=== PATIENT | male | born 1970 | race Caucasian/White ===

== ENCOUNTER 2020-08-30 09:08 | Outpatient (REF) | payer OTHER, SELFPAY ==
[2020-08-30 11:13] LABS: MANUAL DIFF FLAG NO
[2020-08-30 11:26] LABS: Basophils Percent Auto 0.2 % (0-2); Eosinophils Absolute Auto 0.1 X10*3/uL (0.0-0.4); Eosinophils Percent Auto 0.8 % (0-4); Hematocrit 45.1 % (42-52); Hemoglobin 15.3 g/dl (14.0-18.0); Imm Gran Abs Auto 0.01 X10*3/uL (0.00-0.03); Imm Gran Pct Auto 0.2 % (0.0-0.4); Lymphocytes Absolute Auto 2.1 X10*3/uL (1.2-4.9); Lymphocytes Percent Auto 32.2 % (20-40); Mean Corpuscular HGB Conc 33.9 g/dl (31.0-36.0); Mean Corpuscular Volume 91.5 fL (80-98); Mean Platelet Volume 11.4 fL (9.4-12.4); Monocytes Absolute Auto 0.5 X10*3/uL (0.1-1.2); Monocytes Percent Auto 8.5 % (2-11); Neutrophils Absolute Auto 3.7 X10*3/uL (2.0-8.3); Neutrophils Percent Auto 58.1 % (45-73); Platelet Count 179 X10*3/uL (160-400); Red Blood Count 4.93 X10*6/uL (4.60-5.80); Red Cell Distribution Width 12.1 % (11.0-16.0); White Blood Count 6.4 X10*3/uL (4.8-10.8)
[2020-08-30 11:40] LABS: Alanine Aminotransferase 21 U/L (0-40); Albumin Level 4.6 g/dL (3.5-5.0); Alkaline Phosphatase 64 U/L (39-117); Anion Gap 13 (12-20); Aspartate Amino Transferase 20 U/L (5-37); Bilirubin Total 0.9 mg/dL (0.0-1.0); Blood Urea Nitrogen 20 mg/dL (9-16); Calcium 9.2 mg/dL (8.4-10.2); Carbon Dioxide 25 mmol/L (22-29); Chloride 106 mmol/L (96-108); Cholesterol 162 mg/dL; Estimated Glomerular Filt Rate > 60; Glucose Fasting 93 mg/dL (60-99); HDL Cholesterol 34 mg/dL; LDL Cholesterol Calculated 108 mg/dl; Potassium 4.5 mmol/l (3.3-5.1); Sodium 139 mmol/L (135-145); Total Protein 7.1 g/dL (6.5-8.0); Triglycerides 103 mg/dL
[2020-08-30 11:43] LABS: Glucose Urine UA NEG (NEG); Leukocyte Esterase Urine NEG (NEG); Nitrite Urine NEG (NEG); Specific Gravity - Urine 1.025 (1.005-1.025); Urine Blood 1+ (NEG); Urine Ketones NEG (NEG); Urine Protein NEG (NEG-TRACE)
[2020-08-30 11:47] LABS: Appearance Urine CLEAR; Color Urine YELLOW
[2020-08-30 12:06] LABS: WBC Urine 0-2 /HPF (0-4)
== END 2020-08-30 09:09 | disposition home or self-care (01) ==
LOC: HO.HMGCLDS 09:08
PROVIDERS: PCP Internal Medicine; Visit Provider Internal Medicine
DX: Z00.00 Encounter for general adult medical examination without abnormal findings (principal); E78.6 Lipoprotein deficiency; R73.09 Other abnormal glucose
CPT/HCPCS: 36415; 80053; 80061; 81001; 84153; 85025

== ENCOUNTER 2020-09-02 10:07 | Outpatient (REF) | payer OTHER, SELFPAY ==
[2020-09-02 11:24] LABS: Glucose Urine UA NEG (NEG); Leukocyte Esterase Urine NEG (NEG); Nitrite Urine NEG (NEG); Specific Gravity - Urine 1.025 (1.005-1.025); Urine Blood TRACE (NEG); Urine Ketones NEG (NEG); Urine Protein NEG (NEG-TRACE)
[2020-09-02 11:25] LABS: Appearance Urine CLEAR; Color Urine YELLOW
[2020-09-02 11:44] LABS: RBC Urine 0-2 /HPF (0); WBC Urine 0 /HPF (0-4)
== END 2020-09-02 10:08 | disposition home or self-care (01) ==
LOC: HO.HMGCLDS 10:07
PROVIDERS: PCP Internal Medicine; Visit Provider Internal Medicine
DX: R31.9 Hematuria, unspecified (principal)
CPT/HCPCS: 81001

== ENCOUNTER 2022-01-09 10:45 | Outpatient (REF) | payer OTHER, SELFPAY ==
[2022-01-09 10:49] LABS: MANUAL DIFF FLAG NO
[2022-01-09 11:08] LABS: Basophils Percent Auto 0.2 % (0-2); Eosinophils Absolute Auto 0.1 X10*3/uL (0.0-0.4); Eosinophils Percent Auto 1.2 % (0-4); Hematocrit 43.1 % (42.0-52.0); Hemoglobin 14.1 g/dl (14.0-18.0); Imm Gran Abs Auto 0.01 X10*3/uL (0.00-0.03); Imm Gran Pct Auto 0.2 % (0.0-0.4); Lymphocytes Absolute Auto 1.9 X10*3/uL (1.2-4.9); Mean Corpuscular HGB Conc 32.7 g/dl (31.0-36.0); Mean Corpuscular Hemoglobin 30.1 pg (27.0-33.0); Mean Corpuscular Volume 92.1 fL (80.0-98.0); Mean Platelet Volume 11.4 fL (9.4-12.4); Monocytes Absolute Auto 0.6 X10*3/uL (0.1-1.2); Monocytes Percent Auto 9.7 % (2-11); Neutrophils Absolute Auto 3.3 x10*3/uL (2.0-8.3); Neutrophils Percent Auto 56.7 % (45-73); Platelet Count 171 X10*3/uL (160-400); Red Blood Count 4.68 X10*6/uL (4.60-5.80); Red Cell Distribution Width 12.9 % (11.0-16.0); White Blood Count 5.8 X10*3/uL (4.8-10.8)
[2022-01-09 11:13] LABS: Appearance Urine CLEAR; Color Urine YELLOW; Glucose Urine UA NEG (NEG); Leukocyte Esterase Urine NEG (NEG); Nitrite Urine NEG (NEG); Specific Gravity - Urine >= 1.030 (1.005-1.025); Urine Blood TRACE (NEG); Urine Ketones NEG (NEG); Urine Protein NEG (NEG-TRACE)
[2022-01-09 11:28] LABS: Alanine Aminotransferase 24 U/L (0-40); Albumin Level 4.4 g/dL (3.5-5.0); Alkaline Phosphatase 62 U/L (39-117); Anion Gap 10 (12-20); Aspartate Amino Transferase 20 U/L (5-37); Bilirubin Total 0.8 mg/dL (0.0-1.0); Blood Urea Nitrogen 18 mg/dL (9-16); Calcium 9.1 mg/dL (8.4-10.2); Carbon Dioxide 24 mmol/L (22-29); Chloride 109 mmol/L (96-108); Cholesterol 135 mg/dL; Estimated Glomerular Filt Rate > 60; Glucose Fasting 97 mg/dL (60-99); HDL Cholesterol 27 mg/dL; LDL Cholesterol Calculated 88 mg/dl; Potassium 4.1 mmol/L (3.3-5.1); Sodium 139 mmol/L (135-145); Total Protein 6.6 g/dL (6.5-8.0); Triglycerides 104 mg/dL
[2022-01-09 11:49] LABS: PSA,Total (Free>4and<10) 0.57 ng/mL (0.00-4.00)
[2022-01-09 12:06] LABS: Squamous Epithelial Cell Urine TRACE /LPF
[2022-01-09 12:07] LABS: Mucus Urine TRACE /LPF; WBC Urine 0-2 /HPF (0-4)
[2022-01-09 12:08] LABS: Bacteria Urine TRACE /LPF; RBC Urine 0 /HPF (0)
== END 2022-01-09 10:46 | disposition home or self-care (01) ==
LOC: HO.LNP 10:45
PROVIDERS: PCP Internal Medicine; Visit Provider Internal Medicine
DX: Z00.00 Encounter for general adult medical examination without abnormal findings (principal); Z12.5 Encounter for screening for malignant neoplasm of prostate; R31.9 Hematuria, unspecified; E78.6 Lipoprotein deficiency; R73.03 Prediabetes
CPT/HCPCS: 80053; 80061; 81001; 81003; 84153; 85025

== ENCOUNTER 2023-01-12 11:09 | Outpatient (REF) | payer OTHER, SELFPAY ==
[2023-01-12 11:12] LABS: MANUAL DIFF FLAG NO
[2023-01-12 11:31] LABS: Eosinophils Absolute Auto 0.1 X10*3/uL (0.0-0.4); Eosinophils Percent Auto 1.2 % (0-4); Hematocrit 49.5 % (42.0-52.0); Hemoglobin 16.3 g/dl (14.0-18.0); Imm Gran Abs Auto 0.02 X10*3/uL (0.00-0.03); Imm Gran Pct Auto 0.3 % (0.0-0.4); Lymphocytes Percent Auto 28.5 % (20-40); Mean Corpuscular HGB Conc 32.9 g/dl (31.0-36.0); Mean Corpuscular Volume 91.2 fL (80.0-98.0); Mean Platelet Volume 11.6 fL (9.4-12.4); Monocytes Absolute Auto 0.6 X10*3/uL (0.1-1.2); Monocytes Percent Auto 8.3 % (2-11); Neutrophils Absolute Auto 4.3 x10*3/uL (2.0-8.3); Neutrophils Percent Auto 61.7 % (45-73); Platelet Count 197 X10*3/uL (160-400); Red Blood Count 5.43 X10*6/uL (4.60-5.80); Red Cell Distribution Width 12.6 % (11.0-16.0)
[2023-01-12 11:34] LABS: Appearance Urine Clear; Color Urine Yellow; Glucose Urine UA Negative (Negative); Leukocyte Esterase Urine Negative (Negative); Nitrite Urine Negative (Negative); PH 5.5 (5.0-9.0); Urine Blood Negative (Negative); Urine Ketones Negative (Negative); Urine Protein Negative (Neg-Trace)
[2023-01-12 11:39] LABS: Bacteria Urine None Seen (None Seen); Hyaline Casts Urine 0-2 /LPF (0-2); RBC Urine 0-2 /HPF (0-2); Squamous Epithelial Cell Urine 0-2 /HPF (0-2); WBC Urine 0-5 /HPF (0-5)
[2023-01-12 11:49] LABS: Estimated Average Glucose 111 mg/dL; Hemoglobin A1c % 5.5 %
[2023-01-12 11:53] LABS: Alanine Aminotransferase 31 U/L (0-40); Albumin Level 4.7 g/dL (3.5-5.0); Alkaline Phosphatase 69 U/L (39-117); Anion Gap 17 (12-20); Aspartate Amino Transferase 25 U/L (5-37); Blood Urea Nitrogen 14 mg/dL (9-16); Calcium 9.8 mg/dL (8.4-10.2); Carbon Dioxide 24 mmol/L (22-29); Chloride 106 mmol/L (96-108); Cholesterol 181 mg/dL; Estimated Glomerular Filt Rate > 60; Glucose Fasting 105 mg/dL (60-99); HDL Cholesterol 34 mg/dL; LDL Cholesterol Calculated 127 mg/dl; Potassium 4.5 mmol/L (3.3-5.1); Sodium 142 mmol/L (135-145); Total Protein 7.1 g/dL (6.5-8.0); Triglycerides 102 mg/dL
[2023-01-12 12:03] LABS: PSA,Total (Free>4and<10) 1.16 ng/mL (0.00-4.00)
[2023-01-12 12:33] LABS: Creatinine Urine 164.71 mg/dL; Microalbum/Creatinine Ratio Ur 7.2 ug/mg cr
== END 2023-01-12 11:10 | disposition home or self-care (01) ==
LOC: HO.LNP 11:09
PROVIDERS: PCP Internal Medicine; Visit Provider Internal Medicine
DX: Z00.00 Encounter for general adult medical examination without abnormal findings (principal); Z12.5 Encounter for screening for malignant neoplasm of prostate; R73.03 Prediabetes
CPT/HCPCS: 80053; 80061; 81001; 82043; 83036; 84153; 85025

== ENCOUNTER 2023-06-08 08:43 | Day surgery (SDC) | payer OTHER, SELFPAY ==
[2023-06-08 06:07] VITALS: BMI 29.9
[2023-06-08] MEDS: Lactated Ringers 1,000 ML 50 ML IVCONT (09:25)
[2023-06-08 09:34] VITALS: BP 140/84; PULSE 75; RESP 18; TEMP 36.7; O2SAT 98
--- NOTE | 2023-06-08 10:02 | HO.ANESPROP2 ---
HPI - Anesthesia Eval Consult details Narrative: 52 yo male patient for Colonoscopy PMFSH Active Problems Active Problems: No pertinent medical history Family History Family history of problems with anesthesia: No Surgical History Surgical History Hx of tonsillectomy H/O colonoscopy History of Problems with Anesthesia: No Social History Social History Patient Tobacco Use Status: Never used Tobacco Are you DNR?: No Advance Directives: No Advance Directives Information Provided: Yes Nutrition Risks: No Nutritional Risk Meds Allergies Allergy/AdvReac Type Severity Reaction Status Date / Time No Known Allergies Allergy Verified 06/08/23 09:21 Active Medications: Current Medications Lactated Ringer's (Lr) 1,000 mls @ 50 mls/hr IVCONT .Q20H BONNY Last Admin: 06/08/23 09:25 Dose: 50 mls/hr Home Medications Medication Instructions Recorded Confirmed Last Taken Type No Known Home Meds 06/07/23 06/07/23 Unknown History Exam Exam Date and Time: June 08, 2023 1002 Height,Weight and Vital Signs: Height 6 ft 2 in Weight 105.506 kg Last Vital Signs Temp 98.1 F 06/08/23 09:34 Pulse 75 06/08/23 09:34 Resp 18 06/08/23 09:34 BP 140/84 H 06/08/23 09:34 Pulse Ox 98 06/08/23 09:34 O2 Del Method Room Air 06/08/23 09:34 Airway Mallampati Class: II TM Dist: >3cm Neck ROM: Full Loose/Missing/Broken Teeth: No (Denies broken, loose, missing teeth) Heart: RRR Lungs: CTAB Assessment and Plan Assessment Anesthesia Assessment: Anesthesia Plan Discussed and Chart Reviewed Final Anesthetic Review Family History of Problems with Anesthesia: No History of Problems with Anesthesia: No NPO: Yes ASA Class: I Final Preanesthetic Review: No Changes in Pt Med Stat, Meds/Allgs Chart Reviewed, Consent Obtained/Reviewed and Anes Risks/Benef Reviewed Patient Risk: Low Procedure Risk: Low Assessment/Block/Sedation in SS: Assess/Block/Sedation-SS Anesthetic Plan Anesthetic Plan: MAC: Disposition: Standard PACU
--- NOTE | 2023-06-08 10:14 | MHC.SHP ---
Pre-Procedural Eval Section A Date of Service: 06/08/23 Section B Chief Complaint: screening Details of Present Illness: see H&P no changes Relevant Family History (Specify if Yes): No Relevant Social History: None Present Medications: see Short Stay Collaborative assessment Medical History: No relevant PMH History of Previous Operations: No relevant previous surgery Allergies: Allergies Allergy/AdvReac Type Severity Reaction Status Date / Time No Known Allergies Allergy Verified 06/08/23 09:21 Review of Systems Sugical H&P ROS: Negative: Constitution, Cardiovascular, Respiratory, Neurological, Psychiatric, Hem-Onc, Allergic/Immunologic, Gastrointestinal, Genitourinary, Musculoskeletal, Integumentary, Endocrine and Eyes/Ears/Nose/Throat Exam Surgical H&P Exam: Normal: HEENT, Normal: Heart, Normal: Lungs, Normal: Extremities, Normal: Abdomen, Normal: Skin and Normal: Neurological Plan Diagnosis/Plan: Unchanged I have reviewed the history and physical and performed a pertinent physical examination on my patient. No changes have occurred unless specified. Time Spent With Patient Time: Total time managing care of this patient today ____ minutes.
[2023-06-08 10:54] VITALS: BP 105/67; PULSE 73; TEMP 36.6; O2SAT 98
--- NOTE | 2023-06-08 10:57 | PM.OP ---
Brief Operative Note Date of Service: 06/08/23 Pre-op diagnosis: see H&P no changes Post-op diagnosis: same Procedure: colonoscopy Surgeon: Roman Chaudhari Anesthesia: MAC Was an [employer] Quality Control Technician used for this Procedure?: No Estimated blood loss (mL): 2 Pathology: other Condition: stable Disposition: PACU
[2023-06-08 11:09] VITALS: BP 139/83; PULSE 76; RESP 20; TEMP 36.6; O2SAT 97
--- NOTE | 2023-06-08 12:09 | OP_ITS ---
DATE OF SERVICE: 06/08/2023 SURGEON: Roman Chaudhari MD INDICATIONS: Colon cancer screening. PREOPERATIVE DIAGNOSIS: POSTOPERATIVE DIAGNOSIS: PROCEDURE PERFORMED: Colonoscopy to the terminal ileum with biopsy. ESTIMATED BLOOD LOSS: COMPLICATIONS: ANESTHESIA: Monitored anesthesia care. ASSISTANTS: SPECIMENS: DESCRIPTION OF PROCEDURE: A history and physical was performed. The risks and benefits of the procedure were explained to the patient. Informed consent was obtained. The patient was placed in the left lateral decubitus position. A digital rectal exam was performed and was found to be normal. The Olympus pediatric video colonoscope was introduced into the rectum and advanced to the cecum. The cecum was identified by transillumination, palpation, and identification of ileocecal valve. Examination was performed. The scope was removed. He tolerated the procedure well and was returned to the recovery area in stable condition. FINDINGS: The terminal ileum was normal. The visualized colonic mucosa was normal. The quality of the prep was good. Two polyps were identified, both measured less than 5 mm, and were removed with a biopsy forceps. These were located at 90 cm and at 20 cm. Retroflexed examination was normal. There were some small internal hemorrhoids. IMPRESSION: Colon polyps. RECOMMENDATION: Follow up the biopsy results. MD JERRY Lutz/CHARLIEL / [id number]
== END 2023-06-08 13:08 | disposition home or self-care (01) ==
PROVIDERS: PCP Internal Medicine; Visit Provider Internal Medicine Gastroenterology
PROC: 0DJD8ZZ Inspection of Lower Intestinal Tract, Via Natural or Artificial Opening Endoscopic (ICD-10-PCS; CPT 45378; principal; 2023-06-08 10:20)
DX: Z12.11 Encounter for screening for malignant neoplasm of colon (principal); D12.5 Benign neoplasm of sigmoid colon; K63.5 Polyp of colon; K64.8 Other hemorrhoids
CPT/HCPCS: 45380; 88305

== ENCOUNTER 2024-01-15 11:17 | Outpatient (REF) | payer OTHER, SELFPAY ==
[2024-01-15 11:23] LABS: MANUAL DIFF FLAG NO
[2024-01-15 11:35] LABS: Appearance Urine Clear; Color Urine Yellow; Glucose Urine UA Negative (Negative); Leukocyte Esterase Urine Negative (Negative); Nitrite Urine Negative (Negative); PH 5.5 (5.0-9.0); Specific Gravity - Urine >= 1.030 (1.005-1.025); Urine Blood Negative (Negative); Urine Ketones Negative (Negative); Urine Protein Negative (Neg-Trace)
[2024-01-15 11:40] LABS: Bacteria Urine None Seen (None Seen); Hyaline Casts Urine 0-2 /LPF (0-2); RBC Urine 0-2 /HPF (0-2); Squamous Epithelial Cell Urine 0-2 /HPF (0-2); WBC Urine 0-5 /HPF (0-5)
[2024-01-15 11:57] LABS: Basophils Percent Auto 0.1 % (0-2); Eosinophils Absolute Auto 0.1 X10*3/uL (0.0-0.4); Hematocrit 45.3 % (42.0-52.0); Hemoglobin 15.1 g/dl (14.0-18.0); Imm Gran Abs Auto 0.01 X10*3/uL (0.00-0.03); Imm Gran Pct Auto 0.1 % (0.0-0.4); Lymphocytes Absolute Auto 2.2 X10*3/uL (1.2-4.9); Lymphocytes Percent Auto 30.9 % (20-40); Mean Corpuscular HGB Conc 33.3 g/dl (31.0-36.0); Mean Platelet Volume 11.4 fL (9.4-12.4); Monocytes Absolute Auto 0.6 X10*3/uL (0.1-1.2); Monocytes Percent Auto 8.8 % (2-11); Neutrophils Absolute Auto 4.2 x10*3/uL (2.0-8.3); Neutrophils Percent Auto 59.1 % (45-73); Platelet Count 192 X10*3/uL (160-400); Red Blood Count 4.87 X10*6/uL (4.60-5.80); Red Cell Distribution Width 12.7 % (11.0-16.0); White Blood Count 7.1 X10*3/uL (4.8-10.8)
[2024-01-15 12:04] LABS: Alanine Aminotransferase 36 U/L (0-40); Albumin Level 4.5 g/dL (3.5-5.0); Alkaline Phosphatase 63 U/L (39-117); Anion Gap 14 (12-20); Aspartate Amino Transferase 26 U/L (5-37); Bilirubin Total 0.6 mg/dL (0.0-1.0); Blood Urea Nitrogen 19 mg/dL (9-16); Calcium 9.7 mg/dL (8.4-10.2); Carbon Dioxide 23 mmol/L (22-29); Chloride 107 mmol/L (96-108); Cholesterol 159 mg/dL (<200); Estimated Glomerular Filt Rate > 60; Glucose Fasting 98 mg/dL (60-99); HDL Cholesterol 32 mg/dL (>40); LDL Cholesterol Calculated 100 mg/dL (<100); Sodium 140 mmol/L (135-145); Total Protein 7.4 g/dL (6.5-8.0); Triglycerides 135 mg/dL (<150)
[2024-01-15 12:09] LABS: Estimated Average Glucose 111 mg/dL; Hemoglobin A1c % 5.5 % (<6.0)
[2024-01-15 12:21] LABS: PSA,Total (Free>4and<10) 0.74 ng/mL (0.00-4.00)
[2024-01-15 12:29] LABS: Creatinine Urine 198.82 mg/dL
== END 2024-01-15 11:18 | disposition home or self-care (01) ==
LOC: HO.LNP 11:17
PROVIDERS: Visit Provider Internal Medicine
DX: Z00.00 Encounter for general adult medical examination without abnormal findings (principal); Z12.5 Encounter for screening for malignant neoplasm of prostate; E78.6 Lipoprotein deficiency; R73.03 Prediabetes
CPT/HCPCS: 80053; 80061; 81001; 82043; 82570; 83036; 84153; 85025

== ENCOUNTER 2025-01-19 12:22 | Outpatient (REF) | payer OTHER, SELFPAY ==
[2025-01-19 12:25] LABS: MANUAL DIFF FLAG NO
[2025-01-19 12:40] LABS: Appearance Urine Clear; Basophils Percent Auto 0.2 % (0-2); Color Urine Yellow; Eosinophils Absolute Auto 0.1 X10*3/uL (0.0-0.4); Eosinophils Percent Auto 1.4 % (0-4); Glucose Urine UA Negative (Negative); Hematocrit 45.9 % (42.0-52.0); Hemoglobin 15.1 g/dl (14.0-18.0); Imm Gran Abs Auto 0.01 X10*3/uL (0.00-0.03); Imm Gran Pct Auto 0.2 % (0.0-0.4); Leukocyte Esterase Urine Negative (Negative); Lymphocytes Absolute Auto 2.2 X10*3/uL (1.2-4.9); Lymphocytes Percent Auto 34.3 % (20-40); Mean Corpuscular HGB Conc 32.9 g/dl (31.0-36.0); Mean Corpuscular Hemoglobin 30.6 pg (27.0-33.0); Mean Corpuscular Volume 92.9 fL (80.0-98.0); Mean Platelet Volume 11.5 fL (9.4-12.4); Monocytes Absolute Auto 0.5 X10*3/uL (0.1-1.2); Monocytes Percent Auto 8.3 % (2-11); Neutrophils Absolute Auto 3.6 x10*3/uL (2.0-8.3); Neutrophils Percent Auto 55.6 % (45-73); Nitrite Urine Negative (Negative); PH 7.5 (5.0-9.0); Platelet Count 180 X10*3/uL (160-400); Red Blood Count 4.94 X10*6/uL (4.60-5.80); Red Cell Distribution Width 12.7 % (11.0-16.0); Urine Blood Negative (Negative); Urine Ketones Negative (Negative); Urine Protein Negative (Neg-Trace); White Blood Count 6.4 X10*3/uL (4.8-10.8)
[2025-01-19 12:43] LABS: Bacteria Urine None Seen (None Seen); Hyaline Casts Urine 0-2 /LPF (0-2); RBC Urine 0-2 /HPF (0-2); Squamous Epithelial Cell Urine 0-2 /HPF (0-2); WBC Urine 0-5 /HPF (0-5)
--- OUTSIDE RECORDS SUMMARY | 2025-01-19 12:49 | XMS_ITS ---
Author Organization Jitendra Aguilar MD Address [address] [place] [phone] Care Team Providers Care Cake Wringer Name Role Phone Jitendra Aguilar Primary Care Provider Allergies No Known Allergies REASON FOR VISIT ANNUAL EXAM, No Covid symptoms Social History Tobacco Use: Social History Observation Description Date Details (start date - stop date) Never Smoker NA - NA Tobacco Use/Smoking Question Answer Notes Patient is a nonsmoker Additional Findings: Tobacco Non-User Cu rrent non-smoker, currently using no form of tobacco Alcohol Screen Question Answer Notes Did you have a drink containing alcohol in the p ast year? No Points 0 Interpretation Negative Vital Signs Blood pressure systolic 112 mm Hg 01/22/20 24 Blood pressure diastolic 66 mm Hg 024 Height 75 in 01/22/2024 Weight 245 lbs 01/22/2024 BMI 30.62 kg/m2 01/22/2024 weight is up 10 pounds since 01-19-23 Encounters Encounter Location Date Provider Diagnosis Jitendra Aguilar MD [address] [place] [phone] 01/22/2024 Jitendra Aguilar Hemorrhoids, external K64.4 ; Annual physical exam Z00.00 ; Low HDL (under 40) E78.6 ; Prediabetes R73.09 and Depression screening Z13.31 Assessments Encounter Date Diagnosis (ICD Code) Assessment Notes Treatment Notes Treatment Clinical Notes Section Notes 01/22/2024 Hemorrhoids, external (ICD-10 - K64.4) 01/22/2024 Annual physical exam (ICD-10 - Z00.00) labs reviewewd and discussed enzo patient 01/22/2024 Low HDL (under 40) (ICD-10 - E78.6) doing a little better 01/22/2024 Prediabetes (ICD-10 - R73.09) stable, no need for medication at this time 01/22/2024 Depression screening (ICD-10 - Z13.31) negative screen Plan Of Treatment Treatment Notes Assessment Notes Annual physical exam labs reviewewd and discussed enzo patient Low HDL (under 40) doing a little barrett r Prediabetes stable, no need for medication at this time Depression screening negative screen Next Appt Details Follow Up: 1 Year, Reason: Provider Name:Jitendra cox, 01/26/2025 02:30:00 PM, [address] [place] [address], [address], [phone], Progress Notes * ACOSTAWood GOYALDOB:1970 (53 yo M)Acc No.[id number]:01/22/2024 Progress Notes Patient:?Wood Lyons Provider:?Jitendra Aguilar MD :1970???Age:53 Y???Sex:Male Felipe e:01/22/2024 Address:[address] [place], [place] [phone] Subjective: * Chief Complaints: * ???ANNUAL EXAMNo Covid sympt oms * HPI: ???Depression Screening:?PHQ-9?Little interest or pleasure in doing things?Not at all,?Feeling down, depressed, or hopeless?Not at all,?Trouble falling or staying asleep, or sleeping too much?Not at all,?Feeling tired or having little energy?Not at all,?Poor appetite or overeating?Not at all,?Feeling bad about yourself or that you are a failure, or have let yourself or your family down?Not at all,?Trouble concentrating on things, such as reading the newspaper or watching television?Not at all,?Moving or speaking so slowly that other people could have noticed; or the opposite, being so fidgety or restless that you have been moving around a lot more than usual?Not at all,?Thoughts that you would be better off or of hurting yourself in some way?Not at all,?Total Score?0.?Interpretation and Intervention?Depression Screening Findings?Negative,?Follow-Up for Depression?: review of PHQ-9 found negative result, no follow-up needed.?Communication Needs:?Communication Needs?Does the patient have a hearing impairment?No,?Does the patient have a vision impairment??Yes,?If yes, what is the vision impairment??Glasses,?Does the patient have a cognition impairment??No.?SDOH Questions:?SDOH Questions?In the past year have you been worried about losing housing??No,?In the past year have you or any family members you live with been unable to get any of the following when it was really needed? Check all that apply:?None.?Symptom(s):? patient is a 53 yo male here for annual visit with review of recent labs and follow up of chronic issues. * ROS:?General/Constitutional:?Patient denies?fatigue, headache.?Change in appetite?denies.?Chills?denies.?Fever?denies.?Ophthalmologic:?Blurred vision?denies.?Discharge?denies.?Pain?denies.?ENT:?Patient denies?decreased sense of smell, any loss of taste, sore throat.?Decreased hearing?denies.?Sore throat?denies.?Swollen glands?denies.?Endocrine:?Cold intolerance?denies.?Excessive thirst?denies.?Heat intolerance?denies.?Weight loss?denies.?Respiratory:?Cough?denies.?Shortness of breath at rest?denies.?Shortness of breath with exertion?denies.?Wheezing?denies.?Cardiovascular:?Chest pain at rest?denies.?Chest pain with exertion?denies.?Irregular heartbeat?denies.?Shortness of breath?denies.?Gastrointestinal:?Abdominal pain?denies.?Change in bowel habits?denies.?Diarrhea?denies.?Nausea?denies.?Rectal bleeding?denies.?Vomiting?denies .?Genitourinary:?Blood in urine?denies.?Difficulty urinating?denies.?Frequent urination?denies.?Musculoskeletal:?Patient denies?muscle aches.?Painful joints?denies.?Weakness?denies.?Peripheral Vascular:?Patient denies?red and blue toes.?Skin:?Dry skin?denies.?Itching?denies.?Denies?Mole(s),? changes in moles, new moles or any lesions of concern.?Denies?Photosensitivity.?Rash?denies.?Neurologic:?Dizziness?denies.?Fainting?denies.?Headache?denies.? * Medical History:? * Surgical History:? * Hospitalization/Major Diagno stic Procedure:? * Family History:?Father: dece ased 78 yrs.?Mother: 44 yrs, diagnosed with Cancer.?1 brother(s) . .? Mother-Cancer father Bladder cancer alcohol abuse father no mental illness in the family, Denies mental health/substance abuse family history. * Social History:?Tobacco Use:?Tobacco Use/Smoking?Patient is a?nonsmoker,?Additional Findings: Tobacco Non-User?Current non-smoker, currently using no form of tobacco.?Drugs/Alcohol:?Alcohol Screen?Did you have a drink containing alcohol in the past year??No,?Points?0,?Interpretation?Negative.?Miscellaneous:?no Caffeine. no Children. no Community involvements. Exercise: yes, walks in the good weather 1 hour. Home smoke detector use: yes. Housing: owning. Living with: spouse. Marital status: . Occupation: weeks/months/years, works full-time. Pets: cats: dogs:2 cats. no Travel outside of the [place]. * Medications:?None * Allergies:?N.K.D.A.yes[Aller gies Verified] Objective: * Vitals:?Ht: 75, Wt:245, BMI: 30.62, BP:112/66 weight is up 10 pounds since 01-19-23. * ???Past Orders: ???Lab:PSA,Total (Free>4and< 10) (Order Date - 01/15/2024) (Collection Date - 01/15/2024) ? Value Reference Range ?PSA,Total (Free>4and<10) 0.74 0.00-4.00 - ng/mL ???Lab:Microalbumin, Random (Order Date - 01/15/2024) (Collection Date - 01/15/2024) ? Value Reference Range ?Creatinine Urine 198.82 - m g/dL ?Microalbumin Urine 8.0 - mg/L ?Microalbum Creatinine Ratio Ur 4.0 <30 - ug/mg cr ???Lab:Hemoglobin A1c (Order Date - 01/15/2024) (Collection Date - 01/15/2024) ? Value Reference Range ?Hemoglobin A1c % 5.5 <6. 0 - % ?Estimated Average Glucose 111 - mg/dL ???Lab:Complete Blood Count Auto Diff (Order Date - 01/15/2024) (Collection Date - 01/15/2024) ? Value Reference Range ?White Blood Count 7.1 4. 8-10.8 - X10*3/uL ?Red Blood Count 4.87 4.60 -5.80 - X10*6/uL ?Hemoglobin 15.1 14.0-18.0 - g/dl ?Hematocrit 45.3 42.0-52.0 - % ?Mean Corpuscular Volume 93.0 80.0-98.0 - fL ?Mean Corpuscular Hemoglobin 31.0 27.0-33.0 - pg ?Mean Corpuscular HGB Conc 33.3 31.0-36.0 - g/dl ?Red Cell Distribution Width 12.7 11.0-16.0 - % ?Platelet Count 192 160-4 00 - X10*3/uL ?Mean Platelet Volume 11.4 9.4-12.4 - fL ?Neutrophils Percent Auto 59.1 45-73 - % ?Imm Gran Pct Auto 0.1 0. 0-0.4 - % ?Lymphocytes Percent Auto 30.9 20-40 - % ?Monocytes Percent Auto 8.8 2-11 - % ?Eosinophils Percent Auto 1.0 0-4 - % ?Basophils Percent Auto 0.1 0-2 - % ?NRBC Pct Auto 0.0 0.0-0. 2 - /100WBC ?Neutrophils Absolute Auto 4.2 2.0-8.3 - x10*3/uL ?Imm Gran Abs Auto 0.01 0. 00-0.03 - X10*3/uL ?Lymphocytes Absolute Auto 2.2 1.2-4.9 - X10*3/uL ?Monocytes Absolute Auto 0.6 0.1-1.2 - X10*3/uL ?Eosinophils Absolute Auto 0.1 0.0-0.4 - X10*3/uL ?Basophils Absolute Auto 0.0 0.0-0.2 - X10*3/uL ?NRBC Abs Auto 0.000 0.0-0. 012 - X10*3/uL ???Lab:UA ClnCatch+Micro w/r flx Cult (Order Date - 01/15/2024) (Collection Date - 01/15/2024) ? Value Reference Range ?Color Urine Yellow - ?Appearance Urine Clear - ?PH 5.5 5.0-9.0 - ?Glucose Urine UA Negative Neg ative - mg/dL ?Urine Blood Negative Negative - ?Specific [place] - Urine >= 1.030 H 1.005-1.025 - ?Urine Protein Negative Neg-Tr jarett - mg/dL ?Urine Ketones Negative Negati ve - mg/dL ?Nitrite Urine Negative Negati ve - ?Leukocyte Esterase Urine Negative Negative - ?RBC Urine 0-2 0-2 - /HPF ?WBC Urine 0-5 0-5 - /HPF ?Squamous Epithelial Cell Urine 0-2 0-2 - /HPF ?Bacteria Urine None Seen None Seen - ?Hyaline Casts Urine 0-2 0-2 - /LPF ???Lab:Comprehensive [place]. P ying Fast (Order Date - 01/15/2024) (Collection Date - 01/15/2024) ? Value Reference Range ?Sodium 140 135-145 - mmo l/L ?Bilirubin Total 0.6 0.0- 1.0 - mg/dL ?Aspartate Amino Transferase 26 5-37 - U/L ?Alanine Aminotransferase 36 0-40 - U/L ?Total Protein 7.4 6.5-8. 0 - g/dL ?Albumin Level 4.5 3.5-5. 0 - g/dL ?Alkaline Phosphatase 63 39-117 - U/L ?Potassium 4.0 3.3-5.1 - mmol/L ?Chloride 107 96-108 - mm ol/L ?Carbon Dioxide 23 22-29 - mmol/L ?Anion Gap 14 12-20 - ?Blood Urea Nitrogen 19 H 9-16 - mg/dL ?Creatinine 0.79 0.5-1.4 - mg/dL ?Estimated Glomerular Filt Rate > 60 - ?Glucose Fasting 98 60-9 9 - mg/dL ?Calcium 9.7 8.4-10.2 - m g/dL ???Lab:Lipid Panel (Order Da te - 01/15/2024) (Collection Date - 01/15/2024) ? Value Reference Range ?Triglycerides 135 <150 - mg/dL ?Cholesterol 159 <200 - m g/dL ?LDL Cholesterol Calculated 100 H <100 - mg/dL ?HDL Cholesterol 32 L >40 - mg/dL * Examination: ???General Examination: ?GENERAL APPEARANCE:?well developed, well nourished, in no acute distress.?HEAD:?normocephalic, atraumatic.?EYES:?pupils equal, round, reactive to light and accommodation, sclera non-icteric.?EARS:?normal.?ORAL CAVITY:?mucosa moist.?THROAT:?clear.?NECK/THYROID:?neck supple, full range of motion, no cervical lymphadenopathy, no bruits.?SKIN:?warm and dry, no suspicious lesions.?HEART:?regular rate and rhythm, S1, S2 normal, no murmurs.?LUNGS:?clear to auscultation bilaterally.?ABDOMEN:?soft, nontender, nondistended, bowel sounds present, normal, no organomegaly , no masses palpable.?RECTAL EXAM:?normal tone,?has external hemorrhoids, no masses palpable, prostate normal, no stool. had colonoscopy.?MALE GENITOURINARY:?circumcised, no penile lesions or discharge, no testicular mass, testes descended bilaterally.?EXTREMITIES:?no clubbing, cyanosis, or edema.?NEUROLOGIC:?nonfocal, motor strength normal upper and lower extremities, sensory exam intact.? Assessment: * Assessment: 1.?Annual physical exam - Z0 0.00 (Primary)?2.?Hemorrhoids, external - K64.4?3.?Low HDL (under 40) - E78.6?4.?Prediabetes - R73.09?5.?Depression screening - Z13.31? Plan: * Treatment: 2.?Low HDL (under 40)? Notes: doing a little better.?? 3.?Prediabetes? Notes: stable, no need for medication at this time.?? 4.?Depression screening? Notes: negative screen.?? * Procedure Codes:? * Follow Up:?1 Year * * Sign off status: Completed true * Provider:?Jitendra Aguilar MD Date:?0 01/22/2024 Generated for Michael peralta/Darlene/Mariitting on:?01/19/2025 12:49 PM EDT History and Physical Notes * HPI (History of Present Illness) Category Sub-Category Detail Notes Category Not es Symptom(s) patient is a 53 yo male here for annual visit with review of recent labs and follow up of chronic issues. Depression Screening PHQ-9 Little inte rest or pleasure in doing things: Not at all Feeling down, depressed, or hopeless: No t at all Trouble falling or staying asleep, or sl eeping too much: Not at all Feeling tired or having little energy: N ot at all Poor appetite or overeating: Not at all Feeling bad about yourself o r that you are a failure, or have let yourself or your family down: Not at all Trouble concentrating on thi ngs, such as reading the newspaper or watching television: Not at all Moving or speaking so slowly that other people could have noticed; or the opposite, being so fidgety or restless that you have been moving around a lot more than usual: Not at all Thoughts that you would be b gonzalo off or of hurting yourself in some way: Not at all Total Score: 0 Interpretation and Intervention Depression Clif khalil Findings: Negative Follow-Up for Depression: : review of PH Q-9 found negative result, no follow-up needed SDOH Questions SDOH Questions In the past year have you been worried about losing housing?: No In the past year have you or any family members you live with been unable to get any of the following when it was really needed? Check all that apply:: None Communication Needs Communication Needs Does the patient have a hearing impairment: No Does the patient have a vision impairmen t?: Yes ?If yes, what is the vision impairment?: Glasses Does the patient have a cognition impair ment?: No Examination Category Sub-Category Detail Notes Category Not es General Examination GENERAL APPEARANCE: well dev eloped, well nourished, in no acute distress HEAD: normocephalic, atrau matic EYES: pupils equal, round, reactive to light and accommodation, sclera non- icteric EARS: normal THROAT: clear NECK/THYROID: neck supple, full ra nge of motion, no cervical lymphadenopathy, no bruits HEART: regular rate and rhy thm, S1, S2 normal, no murmurs LUNGS: clear to auscultatio n bilaterally ABDOMEN: soft, nontender, non distended, bowel sounds present, normal, no organomegaly , no masses palpable NEUROLOGIC: nonfocal, motor stre ngth normal upper and lower extremities, sensory exam intact SKIN: warm and dry, no britni picious lesions EXTREMITIES: no clubbing, cyanosi s, or edema MALE GENITOURINARY: circumcised, no peni le lesions or discharge, no testicular mass, testes descended bilaterally RECTAL EXAM: normal tone, has ext ernal hemorrhoids, no masses palpable, prostate normal, no stool. had colonoscopy ORAL CAVITY: mucosa moist
--- OUTSIDE RECORDS SUMMARY | 2025-01-19 12:49 | XMS_ITS ---
Author Organization Jitendra Aguilar MD Address [address] [place] [phone] Care Team Providers Care Microphone Operator Name Role Phone Jitendra Aguilar Primary Care Provider Results Component Value Reference Range Notes Complete Blood Count Auto Di ff (Not yet reviewed by provider) Interpretation: Performing Lab:[facility], [address] [place] [phone] Notes/Report: White Blood Count 6.4 4.8-10.8 X10*3/uL Red Blood Count 4.94 4.60-5.80 X10*6/uL Hemoglobin 15.1 14.0-18.0 g/dl Hematocrit 45.9 42.0-52.0 % Mean Corpuscular Volume 92.9 80.0-98.0 fL Mean Corpuscular Hemoglobin 30.6 27.0-33.0 pg Mean Corpuscular HGB Conc 32.9 31.0-36.0 g/dl Red Cell Distribution Width 12.7 11.0-16.0 % Platelet Count 180 160-400 X10*3/uL Mean Platelet Volume 11.5 9.4-12.4 fL Neutrophils Percent Auto 55.6 45-73 % Imm Gran Pct Auto 0.2 0.0-0.4 % Lymphocytes Percent Auto 34.3 20-40 % Monocytes Percent Auto 8.3 2-11 % Eosinophils Percent Auto 1.4 0-4 % Basophils Percent Auto 0.2 0-2 % NRBC Pct Auto 0.0 0.0-0.2 /100WBC Neutrophils Absolute Auto 3.6 2.0-8.3 x10*3/u L Imm Gran Abs Auto 0.01 0.00-0.03 X10*3/uL Lymphocytes Absolute Auto 2.2 1.2-4.9 X10*3/u L Monocytes Absolute Auto 0.5 0.1-1.2 X10*3/uL Eosinophils Absolute Auto 0.1 0.0-0.4 X10*3/u L Basophils Absolute Auto 0.0 0.0-0.2 X10*3/uL NRBC Abs Auto 0.000 0.0-0.012 X10*3/uL UA ClnCatch+Micro w/rflx Cul t (Not yet reviewed by provider) Interpretation: Performing Lab:[facility], [address] [place] [phone] Notes/Report: Urine, Clean Catch Color Urine Yellow Appearance Urine Clear PH 7.5 5.0-9.0 Glucose Urine UA Negative Negative mg/dL Urine Blood Negative Negative Specific [place] - Urine 1.020 1.005-1.025 Urine Protein Negative Neg-Trace mg/dL Urine Ketones Negative Negative mg/dL Nitrite Urine Negative Negative Leukocyte Esterase Urine Negative Negative RBC Urine 0-2 0-2 /HPF WBC Urine 0-5 0-5 /HPF Squamous Epithelial Cell Urine 0-2 0-2 /HPF Bacteria Urine None Seen None Seen Hyaline Casts Urine 0-2 0-2 /LPF REASON FOR VISIT FASTING LABS Encounters Encounter Location Date Provider Diagnosis Jitendra Aguilar MD [address] [place], [place] [phone] 01/19/2025 Jitendra Aguilar Blood tests for routine general physical examination Z00.00 ; Low HDL (under 40) E78.6 and Prediabetes R73.09 Assessments Encounter Date Diagnosis (ICD Code) Assessment Notes Treatment Notes Treatment Clinical Notes Section Notes 01/19/2025 Blood tests for routine general physical examination (ICD-10 - Z00.00) 01/19/2025 Low HDL (under 40) (ICD-10 - E78.6) 01/19/2025 Prediabetes (ICD-10 - R73.09) Plan Of Treatment Pending Test Test Name Order Date Complete Blood Count Auto Diff Comprehensive [place]. Panel Fast Lipid Panel 01/19/2025 PSA,Total (Free>4and<10) 01/19/2025 Microalbumin, Random 01/19/2025 Hemoglobin A1c 01/19/2025 UA ClnCatch+Micro w/rflx Cult 01/19/2025 Next Appt Details Provider Name:Jitendra Sorto ier, 01/26/2025 02:30:00 PM, [address] [place] [address], [address], [place], [place], [phone], Progress Notes * Wood LYONSDOB:1970 (54 yo M)Acc No.[id number]:01/19/2025 Progress Note Patient:?NICOLEWood CONDON Provider:?Jitendra Aguilar MD :1970???Age:54 Y???Sex:Male Felipe e:01/19/2025 Address:[address] [place] [address] Subjective: * Chief Complaints: * ???1. FASTING LABS. * Medical History:? Objective: * Vitals:? Assessment: * Assessment: 1.?Blood tests for routine g eneral physical examination - Z00.00 (Primary)???2.?Low HDL (under 40) - E78.6???3.?Prediabetes - R73.09??? Plan: * Treatment: 2.?Low HDL (under 40)?LAB: Complete Blood Count Auto Diff (Collection Date & Time - 01/19/2025 07:45 AM) ?LAB: Comprehensive [place]. Panel Fast ?LAB: Lipid Panel ?LAB: PSA,Total (Free>4and<10) ?LAB: Microalbumin, Random ?LAB: Hemoglobin A1c ?LAB: UA ClnCatch+Micro w/rflx Cult (Collection Date & Time - 01/19/2025 07:45 AM) 3.?Prediabetes?LAB: Complete Blood Count Auto Diff (Collection Date & Time - 01/19/2025 07:45 AM) ?LAB: Comprehensive [place]. Panel Fast ?LAB: Lipid Panel ?LAB: PSA,Total (Free>4and<10) ?LAB: Microalbumin, Random ?LAB: Hemoglobin A1c ?LAB: UA ClnCatch+Micro w/rflx Cult (Collection Date & Time - 01/19/2025 07:45 AM) * Procedure Codes:?19149 VENIP UNCT, ROUTINE* * * The named appointment provid er may or may not be the originator of this progress note, and it is not deemed complete until electronically signed by the appointment provider. Sign off status: Pending * Provider:?Jitendra Aguilar MD Date:?0 01/19/2025 Generated for Michael peralta/Darlene/Mariitting on:?01/19/2025 12:49 PM EDT
[2025-01-19 12:50] LABS: Estimated Average Glucose 108 mg/dL; Hemoglobin A1C 141.2704 umol/L; Hemoglobin A1c % 5.4 % (<6.0); Total Hemoglobin (HGBA1C) 3922.5059 umol/L
--- OUTSIDE RECORDS SUMMARY | 2025-01-19 12:50 | XMS_ITS | Patient Health Record ---
Author Organization Jitendra Aguilar MD Address [address] [place], [place] [id number] Care Team Providers Care Lime Supervisor Name Role Phone Jitendra Aguilar Primary Care Provider Allergies No Known Allergies Results Component Value Reference Range Notes Complete Blood Count Auto Di ff (Not yet reviewed by provider) Interpretation: Performing Lab:[facility], [address] [place] [phone] Notes/Report: White Blood Count 6.4 4.8-10.8 X10*3/uL [...] (Not yet reviewed by provider) Interpretation: Performing Lab:[facility], [address] [place] [phone] Notes/Report: Urine, Clean Catch Color Urine Yellow Appearance Urine Clear PH 7.5 5.0-9.0 Glucose Urine UA Negative Negative mg/dL Urine Blood Negative Negative Specific [place] - Urine 1.020 1.005-1.025 Urine Protein Negative Neg-Trace mg/dL Urine Ketones Negative Negative mg/dL Nitrite Urine Negative Negative Leukocyte Esterase Urine Negative Negative RBC Urine 0-2 0-2 /HPF WBC Urine 0-5 0-5 /HPF Squamous Epithelial Cell Urine 0-2 0-2 /HPF Bacteria Urine None Seen None Seen Hyaline Casts Urine 0-2 0-2 /LPF Reason For Referral No Information Immunizations Vaccine Route Administration Date Status Comme nts Flu Vaccine IM Intramuscular 06/29/2014 Administered TDaP IM Intramuscular 06/29/2014 Administered Flu Vaccine Unknown 07/15/2015 Administered At work Fluarix Quadrivalent IM Intramuscular 07/10/2016 Administe red Fluarix Quadrivalent IM Intramuscular 08/06/2017 Administe red Fluarix Quadrivalent IM Intramuscular 08/12/2018 Administe red Fluarix Quadrivalent Unknown 08/18/[address] at work Tetanus Unknown 06/29/2014 Administered Fluarix Quadrivalent Unknown 09/07/2020 Refused Covid Vaccine Unknown 01/16/2022 Refused Tetanus Unknown 06/29/2014 Pending Social History Tobacco Use: Social History Observation [...] ast year? No Points 0 Interpretation Negative Problems Problem Type SNOMED Code ICD Code Onset Dates Problem Status W/U Status Risk Notes Problem 4171916 Prediabetes (R73.09) Active confirmed Problem 830247184 Low HDL (under 40) (E78.6) Active confirmed Vital Signs Blood pressure diastolic 66 mm Hg 01/22/2024 tiffany ght is up 10 pounds since 01-19-23 Height 75 in 01/22/2024 weight is up 10 pounds since 01-19-23 Blood pressure systolic 112 mm Hg 01/22/2024 weig ht is up 10 pounds since 01-19-23 Weight 245 lbs 01/22/2024 weight is up 10 pounds since 01-19-23 BMI 30.62 kg/m2 01/22/2024 weight is up 10 pounds since 01-19-23 Encounters Encounter Location Date Provider Diagnosis Jitendra Aguilar MD [address] [place] [address] Drive [address] [place] [phone] 01/19/2025 Jitendra Aguilar Blood tests for routine general physical examination Z00.00 ; Low HDL (under 40) E78.6 and Prediabetes R73.09 Jitendra Aguilar MD [address] [place] [address] Drive [address] [place] [id number] 01/22/2024 Jitendra Aguilar Hemorrhoids, external K64.4 ; Annual physical exam Z00.00 ; Low HDL (under 40) E78.6 ; Prediabetes R73.09 and Depression screening Z13.31 Assessments Encounter Date Diagnosis (ICD Code) Assessment Notes Treatment Notes Treatment Clinical Notes Section Notes 01/19/2025 Blood tests for routine general physical examination (ICD-10 - Z00.00) 01/22/2024 Hemorrhoids, external (ICD-10 - K64.4) 01/22/2024 Annual physical exam (ICD-10 - Z00.00) labs reviewewd and discussed enzo patient 01/19/2025 Low HDL (under 40) (ICD-10 - E78.6) 01/22/2024 Low HDL (under 40) (ICD-10 - E78.6) doing a little better 01/19/2025 Prediabetes (ICD-10 - R73.09) 01/22/2024 Prediabetes (ICD-10 - R73.09) stable, no need for medication at this time 01/22/2024 Depression screening (ICD-10 - Z13.31) negative screen Plan Of Treatment Pending Test Test Name Order Date Complete Blood Count Auto Diff Comprehensive [place]. Panel Fast 5 Lipid Panel 01/19/2025 PSA,Total (Free>4and<10) 01/19/2025 Microalbumin, Random 01/19/2025 Hemoglobin A1c 01/19/2025 UA ClnCatch+Micro w/rflx Cult 01/19/2025 Next Appt Details Provider Name:Jitendra Sorto ier, 01/26/2025 02:30:00 PM, [address] [place] [address], [address], [place], [place], [phone], Insurance Providers Payer Name Payer Address Payer Phone Subscriber Number Group Number Insured Name Patient Relationship to Insured Coverage Start Date Coverage End Date [address] [address] [place] [phone] [id number] Wood Lyons Self - patient is the insured Medical (General) History Medical History History ICD Code colonoscopy 2011/ 2.getting it done 2022: Colonoscopy 06/08/23 tubular adenoma
--- OUTSIDE RECORDS SUMMARY | 2025-01-19 12:50 | XMS_ITS | Patient Health Record ---
Author Organization [facility] Address [address] [place] [address] Care Team Providers Care Lime Trimmer Name Role Phone Jeff PISANO, Jitendra Primary Care Provider Jason Chaudhari Jr, Roman Unavailable Allergies No Known Allergies Reason For Referral No Information Medications Medication SIG (Take, Route, Frequency, Duration) Notes Start Date End Date Status MiraLax (colon prep) 17 GM/SCOOP mixed with Gatorade or Crystal Light Orally begin at 5:00 p.m. the day before the procedure for 1 day 04/09/2023 Active Immunizations Vaccine Route Administration Date Status Comme nts Influenza Unknown 04/09/2023 Refused Problems Problem Type SNOMED Code ICD Code Onset Dates Problem Status W/U Status Risk Notes Problem 361442585 Colon cancer screening (Z12.11) Active confirmed Problem 41527668 Rectal bleeding (K62.5) Active confirmed Plan Of Treatment Future Test Test Name Order Date COLONOSCOPY 06/21/2012 COLONOSCOPY 04/09/2023 Insurance Providers Payer Name Payer Address Payer Phone Subscriber Number Group Number Insured Name Patient Relationship to Insured Coverage Start Date Coverage End Date [facility] [address] [place] [phone] [id number] RAFAEL LYONS Self - patient is the insured Medical (General) History Medical History History ICD Code Colonoscopy 08/21, hyperplastic polyp, t en-year followup Surgical History Surgery Date(Month/Year) Tonsillectomy
--- OUTSIDE RECORDS SUMMARY | 2025-01-19 12:50 | XMS_ITS ---
Author Organization Jitendra Aguilar MD Address [address] [place] [phone] Care Team Providers Care Agile Coach Name Role Phone Jitendra Aguilar Primary Care Provider Results Component Value Reference Range Notes Complete Blood Count Auto Di ff Reviewed date:01/15/2024 06:40:41 PM Interpretation: Performing Lab:[facility], [address] [place] [phone] Notes/Report: White Blood Count 7.1 4.8-10.8 X10*3/uL Red Blood Count 4.87 4.60-5.80 X10*6/uL Hemoglobin 15.1 14.0-18.0 g/dl Hematocrit 45.3 42.0-52.0 % Mean Corpuscular Volume 93.0 80.0-98.0 fL Mean Corpuscular Hemoglobin 31.0 27.0-33.0 pg Mean Corpuscular HGB Conc 33.3 31.0-36.0 g/dl Red Cell Distribution Width 12.7 11.0-16.0 % Platelet Count 192 160-400 X10*3/uL Mean Platelet Volume 11.4 9.4-12.4 fL Neutrophils Percent Auto 59.1 45-73 % Imm Gran Pct Auto 0.1 0.0-0.4 % Lymphocytes Percent Auto 30.9 20-40 % Monocytes Percent Auto 8.8 2-11 % Eosinophils Percent Auto 1.0 0-4 % Basophils Percent Auto 0.1 0-2 % NRBC Pct Auto 0.0 0.0-0.2 /100WBC Neutrophils Absolute Auto 4.2 2.0-8.3 x10*3/u L Imm Gran Abs Auto 0.01 0.00-0.03 X10*3/uL Lymphocytes Absolute Auto 2.2 1.2-4.9 X10*3/u L Monocytes Absolute Auto 0.6 0.1-1.2 X10*3/uL Eosinophils Absolute Auto 0.1 0.0-0.4 X10*3/u L Basophils Absolute Auto 0.0 0.0-0.2 X10*3/uL NRBC Abs Auto 0.000 0.0-0.012 X10*3/uL Comprehensive [place]. Panel Fa st Reviewed date:01/15/2024 12:45:14 PM Interpretation: Performing Lab:[facility], [address] [place] [phone] Notes/Report: Sodium 140 135-145 mmol/L Potassium 4.0 3.3-5.1 mmol/L Chloride 107 96-108 mmol/L Carbon Dioxide 23 22-29 mmol/L Anion Gap 14 12-20 Blood Urea Nitrogen 19 9-16 mg/dL Creatinine 0.79 0.5-1.4 mg/dL Estimated Glomerular Filt Rate > 60 NOTE: For -[place]osoth[place] individuals, multiply the result by 1.210. Chronic Kidney Disease: Estimated GFR < 60 mL/min/1.73m2 Severe Kidney Disease: Estimated GFR < 15 mL/min/1.73m2 Glucose Fasting 98 60-99 mg/dL Calcium 9.7 8.4-10.2 mg/dL Bilirubin Total 0.6 0.0-1.0 mg/dL Aspartate Amino Transferase 26 5-37 U/L Alanine Aminotransferase 36 0-40 U/L Total Protein 7.4 6.5-8.0 g/dL Albumin Level 4.5 3.5-5.0 g/dL Alkaline Phosphatase 63 39-117 U/L Lipid Panel Reviewed date:01/15/2024 12:36:53 PM Interpretation: Performing Lab:[facility], [address] [place] [phone] Notes/Report: Triglycerides 135 <150 mg/dL Desirable Triglyceride: less than 150 mg/dL Borderline High Triglyceride 150-199 mg/dL High Triglyceride: 200-499 mg/dL Very High Triglyceride: greater than or equal to 5OO mg/dL Cholesterol 159 <200 mg/dL Desirable Cholesterol: less than 200 mg/dL Borderline High Cholesterol: 200-239 mg/dL High Cholesterol: greater than 239 mg/dL LDL Cholesterol Calculated 100 <100 mg/dL Desirable LDL: less than 100 mg/dL Near Optimal/Above Optimal LDL: 110-129 mg/dL Borderline High LDL: 130-159 mg/dL High LDL: 160-189 mg/dL Very High LDL: greater than or equal to 190 mg/dL HDL Cholesterol 32 >40 mg/dL Desirable HDL: greater than 40 mg/dL Note: This HDL assay may give artificially low results in patients with liver disease. PSA,Total (Free>4and<10) Reviewed date:01/15/2024 12:37:02 PM Interpretation: Performing Lab:[facility], [address] [place] [phone] Notes/Report: PSA,Total (Free>4and<10) 0.74 0.00-4.00 ng/mL A Free PSA was not performed: The percentage of Free PSA can be used to enhance the differentiation of prostate cancer from benign prostatic disease in subjects whose PSA levels are between 4.0 and 10.0 ng/mL. For subjects whose PSA levels are below 4.0 or above 10.0 ng/mL, the risk of prostate cancer is determined on the basis of the PSA alone. Therefore the % Free PSA is recommended only for those subjects whose PSA levels are between 4.0 and 10.0 ng/mL. PSA methodology: Shen Alinity i Chemiluminescent Microparticle Immunoassay (CMIA) Microalbumin, Random Reviewed date:01/15/2024 12:39:32 PM Interpretation: Performing Lab:[facility], [address] [place] [phone] Notes/Report: Creatinine Urine 198.82 Microalbumin Urine 8.0 Microalbum/Creatinine Ratio Ur 4.0 <30 ug/mg cr Albumin/Creatinine Ratio Reference Ranges: Normal: < 30 ug/mg creatinine Microalbuminuria: 30 - 300 ug/mg creatinine Clinical Albuminuria: > 300 ug/mg creatinine Hemoglobin A1c Reviewed date:01/15/2024 12:37:21 PM Interpretation: Performing Lab:[address] [phone] Notes/Report: Hemoglobin A1c % 5.5 <6.0 % Hemoglobin A1C Reference Range Adults: 4.8 - 6.0 % Non diabetic: < 6.0 % Goal: < 7.0 % Additional Action Suggested: > 8.0 % Note: Hemoglobin A1c results are invalid for patients with abnormal amounts of HbF. Blood transfusions may impact the HbA1c concentration in the patient sample. Estimated Average Glucose 111 eAG = Estimated average glucose which is %A1C expressed as average glucose, using the formula of the [id number] Average Glucose study (ADAG), Diabetes Care, Vol.31,#8, Apr. 2007 UA ClnCatch+Micro w/rflx Cul t Reviewed date:01/15/2024 12:37:46 PM Interpretation: Performing Lab:[facility], [address] [place] [phone] Notes/Report: Urine, Clean Catch Color Urine Yellow Appearance Urine Clear PH 5.5 5.0-9.0 Glucose Urine UA Negative Negative mg/dL Urine Blood Negative Negative Specific [place] - Urine >= 1.030 1.005-1.025 Urine Protein Negative Neg-Trace mg/dL Urine [...] Date Provider Diagnosis Jitendra Aguilar MD [address] [place], [place] [phone] 01/15/2024 Jitendra Aguilar Blood tests for routine general physical examination Z00.00 ; Low HDL (under 40) E78.6 and Prediabetes R73.09 Assessments Encounter Date Diagnosis (ICD Code) Assessment Notes Treatment Notes Treatment Clinical Notes Section Notes 01/15/2024 Blood tests for routine general physical examination (ICD-10 - Z00.00) 01/15/2024 Low HDL (under 40) (ICD-10 - E78.6) 01/15/2024 Prediabetes (ICD-10 - R73.09) Plan Of Treatment Next Appt Details Provider Name:Jitendra Sorto ier, 01/26/2025 02:30:00 PM, [address] [facility], [address], [place], [place], [phone], Progress Notes * Wood LYONSDOB:1970 (54 yo M)Acc No.[id number]:01/15/2024 Progress Note Patient:?Wood LYONS Provider:?Jitendra Aguilar MD :1970???Age:53 Y???Sex:Male Felipe e:01/15/2024 Address:[address] [place], [place] [phone] Subjective: * Chief Complaints: * ???1. FASTING LABS. * Medical History:? Objective: * Vitals:? Assessment: * Assessment: 1.?Blood tests for routine g eneral physical examination - Z00.00 (Primary)???2.?Low HDL (under 40) - E78.6???3.?Prediabetes - R73.09??? Plan: * Treatment: 2.?Low HDL (under 40)?LAB: Complete Blood Count Auto Diff (Collection Date & Time - 01/15/2024 07:00 AM) ?LAB: Comprehensive [place]. Panel Fast (Collection Date & Time - 01/15/2024 07:00 AM) ?LAB: Lipid Panel (Collection Date & Time - 01/15/2024 07:00 AM) ?LAB: PSA,Total (Free>4and<10) (Collection Date & Time - 01/15/2024 07:00 AM) ?LAB: Microalbumin, Random (Collection Date & Time - 01/15/2024 07:00 AM) ?LAB: Hemoglobin A1c (Collection Date & Time - 01/15/2024 07:00 AM) ?LAB: UA ClnCatch+Micro w/rflx Cult (Collection Date & Time - 01/15/2024 07:00 AM) 3.?Prediabetes?LAB: Complete Blood Count Auto Diff (Collection Date & Time - 01/15/2024 07:00 AM) ?LAB: Comprehensive [place]. Panel Fast (Collection Date & Time - 01/15/2024 07:00 AM) ?LAB: Lipid Panel (Collection Date & Time - 01/15/2024 07:00 AM) ?LAB: PSA,Total (Free>4and<10) (Collection Date & Time - 01/15/2024 07:00 AM) ?LAB: Microalbumin, Random (Collection Date & Time - 01/15/2024 07:00 AM) ?LAB: Hemoglobin A1c (Collection Date & Time - 01/15/2024 07:00 AM) ?LAB: UA ClnCatch+Micro w/rflx Cult (Collection Date & Time - 01/15/2024 07:00 AM) * Procedure Codes:?20458 VENIP UNCT, ROUTINE* * * The named appointment provid er may or may not be the originator of this progress note, and it is not deemed complete until electronically signed by the appointment provider. Sign off status: Pending * Provider:?Jitendra Aguilar MD Date:?0 01/15/2024 Generated for Michael peralta/Darlene/eTransmitting on:?01/19/2025 12:49 PM EDT
[2025-01-19 13:16] LABS: PSA,Total (Free>4and<10) 1.01 ng/mL (0.00-4.00)
[2025-01-19 13:21] LABS: Alanine Aminotransferase 30 U/L (0-40); Albumin Level 4.6 g/dL (3.5-5.0); Anion Gap 14 (12-20); Aspartate Amino Transferase 36 U/L (5-37); Bilirubin Total 0.9 mg/dL (0.0-1.0); Blood Urea Nitrogen 16 mg/dL (9-16); Calcium 9.5 mg/dL (8.4-10.2); Carbon Dioxide 23 mmol/L (22-29); Chloride 107 mmol/L (96-108); Cholesterol 154 mg/dL (<200); Estimated Glomerular Filt Rate > 60; Glucose Fasting 101 mg/dL (60-99); HDL Cholesterol 34 mg/dL (>40); LDL Cholesterol Calculated 94 mg/dL (<100); Sodium 140 mmol/L (135-145); Triglycerides 131 mg/dL (<150)
[2025-01-19 14:08] LABS: Creatinine Urine 92.56 mg/dL; Microalbumin Urine < 5.0 mg/L
[2025-01-19 15:17] LABS: Alkaline Phosphatase 65 U/L (39-117)
== END 2025-01-19 12:23 | disposition home or self-care (01) ==
LOC: HO.LNP 12:22
PROVIDERS: Visit Provider Internal Medicine
DX: Z00.00 Encounter for general adult medical examination without abnormal findings (principal); Z12.5 Encounter for screening for malignant neoplasm of prostate; E78.6 Lipoprotein deficiency; R73.03 Prediabetes
CPT/HCPCS: 80053; 80061; 81001; 82043; 82570; 83036; 84153; 85025